=== PATIENT | female | born 1965 | race Caucasian/White ===

== ENCOUNTER 2019-01-19 13:57 | Emergency (ER) | payer BC ==
[2019-01-19 15:49] LABS: ABS Basophils 0.1 10^3/ul (0-0.2); ABS Eosinophils 0.2 10^3/ul (0-0.6); ABS Lymphocytes 2.1 10^3/ul (1.0-4.8); ABS Monocytes 0.8 10^3/ul (0-0.8); Hematocrit 40 % (35-47); Hemoglobin 13.8 g/dL (12.0-16.0); Lymphocyte % 23.1 %; Mean Corpuscular HGB Conc 35 g/dL (31-36); Mean Corpuscular Hemoglobin 30 pg (27-31); Mean Corpuscular Volume 86 fL (80-97); Mean Platelet Volume 8.3 fL (7.4-10.4); Platelet Count 191 10^3/uL (150-450); Red Blood Count 4.66 10^6 /uL (3.70-4.87); Red Cell Distribution Width 13 % (10-15); White Blood Count 9.1 10^3/uL (3.5-10.8)
[2019-01-19 15:56] LABS: Activated Partial Thrombo Time 35.6 seconds (26.0-38.0); INR 1.09 (0.82-1.09)
--- NOTE | 2019-01-19 15:59 | ED ---
GI/ HPI - HPI Summary HPI Summary: 53 year old female presents to the ED with severe diarrhea starting 2 days ago. She reports vomiting, abdominal pain, blood in stool, intermittent chills, and subjective fever. She has a PSHx of cholecystectomy and appendectomy years ago. Patient has not left the country lately or has gone camping. Medications reviewed. Allergies noted. - History of Current Complaint Chief Complaint: EDGIBleed Time Seen by Provider: 01/19/19 15:31 Stated Complaint: BLOOD IN STOOLS PER PT Hx Obtained From: Patient Onset/Duration: Started Days Ago Timing: Intermittent Severity: Severe Current Severity: Severe Pain Intensity: 0 Location of Pain: Diffuse Associated Signs and Symptoms: Positive: Nausea, Vomiting, Bright Red Blood w/ Stool Aggravating Factor(s): Nothing Alleviating Factor(s): Nothing - Allergy/Home Medications Allergies/Adverse Reactions: Allergies Allergy/AdvReac Type Severity Reaction Status Date / Time Sulfa (Sulfonamide AdvReac Hives Verified 01/19/19 14:02 Antibiotics) sulfamethoxazole AdvReac Hives Verified 01/19/19 14:02 [From Bactrim] tetanus and diphtheria AdvReac Fever Verified 01/19/19 14:02 toxoids trimethoprim [From Bactrim] AdvReac Hives Verified 01/19/19 14:02 Home Medications: Home Medications Amitriptyline TAB* [Elavil TAB*] 25 mg PO BEDTIME 01/19/19 [History Confirmed ] Atorvastatin* [Lipitor*] 40 mg PO DAILY 01/19/19 [History Confirmed 01/19/19] Gabapentin CAP(*) [Neurontin 100 mg CAP(*)] 100 mg PO TID 01/19/19 [History Confirmed 01/19/19] Sertraline* [Zoloft*] 100 mg PO DAILY 01/19/19 [History Confirmed 01/19/19] Zolpidem TAB* [Ambien TAB*] 10 mg PO BEDTIME PRN 01/19/19 [History Confirmed 04/08] PMH/Surg Hx/FS Hx/Imm Hx Infectious Disease History: No Infectious Disease History: Denies: Traveled Outside the [place] in Last 30 Days - Family History Known Family History: Positive: Non-Contributory - Social History Alcohol Use: None Substance Use Type: Reports: None Smoking Status (MU): Never Smoked Tobacco Review of Systems Positive: Fever - subjective, Chills Positive: Abdominal Pain, Vomiting, Diarrhea, Nausea, Other - blood in stool All Other Systems Reviewed And Are Negative: Yes Physical Exam - Summary Physical Exam Summary: Constitutional: Well-developed, Well-nourished, Alert. (-) Distressed Skin: Warm, Dry HENT: Normocephalic; Atraumatic Eyes: Conjunctiva normal Neck: Musculoskeletal ROM normal neck. (-) JVD, (-) Stridor, (-) Tracheal deviation Cardio: Rhythm regular, rate normal, Heart sounds normal; Intact distal pulses; Radial pulses are 2+ and symmetric. (-) Murmur Pulmonary/Chest wall: Effort normal. (-) Respiratory distress, (-) Wheezes, (-) Rales Abd: Soft, (-) tenderness, (-) Distension, (-) Guarding, (-) Rebound Musculoskeletal: (-) Edema Lymph: (-) Cervical adenopathy Neuro: Alert, Oriented x3 Psych: Mood and affect Normal Triage Information Reviewed: Yes Vital Signs On Initial Exam: Initial Vitals Temp Pulse Resp BP Pulse Ox 99.0 F 70 16 141/82 98 01/19/19 14:01 01/19/19 14:01 01/19/19 14:01 01/19/19 14:01 01/19/19 14:01 Vital Signs Reviewed: Yes Procedures - Sedation Patient Received Moderate/Deep Sedation with Procedure: No Diagnostics - Vital Signs Vital Signs Temp Pulse Resp BP Pulse Ox 01/19/19 14:01 99.0 F 70 16 141/82 98 - Laboratory Lab Results: Lab Results 01/19/19 01/19/19 Range/Units 15:37 15:37 WBC 9.1 (3.5-10.8) 10^3/uL RBC 4.66 (3.70-4.87) 10^6 /uL Hgb 13.8 (12.0-16.0) g/dL Hct 40 (35-47) % MCV 86 (80-97) fL MCH 30 (27-31) pg MCHC 35 (31-36) g/dL RDW 13 (10-15) % Plt Count 191 (150-450) 10^3/uL MPV 8.3 (7.4-10.4) fL Neut % (Auto) 66.1 % Lymph % (Auto) 23.1 % [place] % (Auto) 8.2 % Eos % (Auto) 2.0 % Baso % (Auto) 0.6 % Absolute Neuts (auto) 6.0 (1.5-7.7) 10^3/ul Absolute Lymphs (auto) 2.1 (1.0-4.8) 10^3/ul Absolute Monos (auto) 0.8 (0-0.8) 10^3/ul Absolute Eos (auto) 0.2 (0-0.6) 10^3/ul Absolute Basos (auto) 0.1 (0-0.2) 10^3/ul Absolute Nucleated RBC 0.0 10^3/ul Nucleated RBC % 0.0 INR (Anticoag Therapy) 1.09 (0.82-1.09) APTT 35.6 (26.0-38.0) seconds Result Diagrams: 01/19/19 15:37 01/19/19 15:37 Lab Statement: Any lab studies that have been ordered have been reviewed, and results considered in the medical decision making process. Re-Evaluation - Re-Evaluation 1 Re-Evaluation Time: 17:16 Change: Unchanged Comment: No diarrhea since arrival, will give until 1800 to give a sample. Second Eval Re-Evaluation Time: 18:00 Change: Improved Comment: No bowel movement. Will discharge her. GIGU Course/Dx - Course Course Of Treatment: Patient is here bloody diarrhea, vomiting, abdominal cramping, chills. Patient is a recent international travel, camping, antibiotic use outside of one dose of doxycycline. Patient has a benign abdominal exam. Patient had blood work performed which was grossly unremarkable. Patient did have guaiac positive LANA but no grossly bloody stool. Patient had stool cultures ordered but cannot produce a sample here. Patient was encouraged to f/u with HER primary care doctor and given strict return precautions. - Diagnoses Provider Diagnoses: Abdominal pain - Additional Visit Information Is Visit Related: No Discharge ED - Sign-Out/Discharge Documenting (check all that apply): Patient Departure - discharge - Discharge Plan Condition: Stable Disposition: HOME Prescriptions: Dicyclomine CAP* [Bentyl CAP*] 10 mg PO TID PRN #20 cap PRN Reason: abdominal cramping Ondansetron HCl [Zofran] 4 mg PO Q8HR PRN #12 tablet PRN Reason: Vomiting Patient Education Materials: Acute Diarrhea (ED) Referrals: Delia Li MD [Primary Care Provider] - Additional Instructions: Please stay hydrated with Pedialyte Please take your medicines as prescribed Please return to the emergency department if you have worsening of bowel pain, vomiting that does not with medicine, worsening bloody diarrhea excellent please follow up with your primary care doctor next week to have your liver enzymes rechecked - Billing Disposition and Condition Condition: STABLE Disposition: Home - Attestation Statements Document Initiated by Jcibcarri: Yes Documenting Scribe: Kannan Adamson Provider For Whom Kalpana is Documenting (Include Credential): Gregorio Bishop MD. Scribe Attestation: Kannan Austin scribed for Gregorio Bishop MD. on 01/20/19 at 1945. Scribe Documentation Reviewed: Yes Provider Attestation: The documentation as recorded by the jcibeKannan accurately reflects the service I personally performed and the decisions made by Gregorio vargas MD. Status of Scribe Document: Viewed
[2019-01-19 16:07] LABS: Albumin 4.2 g/dL (3.2-5.2); Albumin/Globulin Ratio 1.4 (1-3); BUN/Creatinine Ratio 16.9 (8-20); Calcium 9.3 mg/dL (8.6-10.3); EGFR African American 114.5 (>60); EGFR Non-African American 94.6 (>60); Globulin 3.1 g/dL (2-4); Potassium 3.6 mmol/L (3.5-5.0); Total Bilirubin 0.7 mg/dL (0.2-1.0); Total Protein 7.3 g/dL (6.4-8.9)
[2019-01-19] MEDS ORDERED: Ondansetron ODT TAB* 4 MG SL ONE (16:40)
[2019-01-19] MEDS ORDERED: Dicyclomine CAP* 10 MG PO ONE (16:40)
[2019-01-19 17:48] LABS: Hepatitis B Surface Antigen Nonreactive (Nonreactive)
[2019-01-19 18:06] LABS: Hepatitis C Antibody Negative (Negative)
[2019-01-19 18:28] VITALS: BP 125/81
--- NOTE | 2019-01-20 16:41 | ED ---
Imaging and Labs Follow Up Follow Up Type: Labs/Cultures Labs/Culture Result: Positive Hemoccult blood test After reviewing patient's notes, physician was aware the patient had bloody diarrhea. H&H stable. No tachycardia or hypotension. Patient advised on follow-up. No further action at this time. Patient Communication/Plan: as above Provider Diagnoses: Abdominal pain
== END 2019-01-19 18:10 | disposition home or self-care (01) ==
LOC: ED 13:57
DX: R10.9 Unspecified abdominal pain (principal); Z79.899 Other long term (current) drug therapy; Z88.1 Allergy status to other antibiotic agents; Z88.2 Allergy status to sulfonamides; Z88.7 Allergy status to serum and vaccine
CPT/HCPCS: 36415; 80053; 80074; 82272; 83690; 85025; 85610; 85730; 99284; A9270-GY